=== PATIENT | male | born 1945 | race Caucasian/White ===

== ENCOUNTER 2023-02-15 11:57 | Outpatient (CLI) | payer MEDICARE, OTHER | END 2023-02-15 11:58 | disposition home or self-care (01) | LOC: CSHRAD 11:57 | PROVIDERS: ATTEND Internal Medicine Rheumatology | DX: M25.551 Pain in right hip (principal); M54.31 Sciatica, right side; M54.50 Low back pain, unspecified; M51.36 Other intervertebral disc degeneration, lumbar region | CPT/HCPCS: 72100 ==

== ENCOUNTER 2024-03-05 13:57 | Outpatient (CLI) | payer MEDICARE, OTHER | END 2024-03-05 13:58 | disposition home or self-care (01) | LOC: CSHCT 13:57 | PROVIDERS: ATTEND Orthopaedic Surgery | DX: Z01.818 Encounter for other preprocedural examination (principal); M06.9 Rheumatoid arthritis, unspecified ==